=== PATIENT | female | born 1980 | race American Indian/Alaskan Native ===

== ENCOUNTER 2017-05-07 01:04 | Emergency (ER) | payer OTHER ==
[2017-05-07 02:30] VITALS: BP 119/57
[2017-05-07] MEDS ORDERED: MOTRIN PO ONE (02:31)
--- NOTE | 2017-05-07 04:33 | XRay Report ---
FINAL REPORT EXAM: XR SPINE CERVICAL 2-3V HISTORY: Neck pain. TECHNIQUE: Frontal, lateral, and odontoid radiographs of the cervical spine were obtained. No prior studies are available for comparison. FINDINGS: The vertebra are visualized to the top of T2 on the lateral radiograph. The cervical vertebral bodies demonstrate normal height and morphology. There is mild straightening of the normal cervical lordosis. This is nonspecific, but most commonly due to patient positioning and/or muscle spasm. There is no fracture or spondylolisthesis. The prevertebral soft tissues are normal in appearance. There is minimal loss of disc height at C4-5 and C5-6, with minimal anterior marginal spurring at these levels. Metallic artifact is seen in the oral cavity. IMPRESSION: 1. Nonspecific mild straightening, with no fracture or spondylolisthesis. 2. Minimal spondylotic and degenerative changes at C4-5 and C5-6.
--- NOTE | 2017-05-07 04:34 | XRay Report ---
FINAL REPORT EXAM: XR SPINE LUMBOSACRAL 2-3V HISTORY: Lower back pain TECHNIQUE: A frontal and two lateral radiographs of the lumbar spine were obtained. No prior studies are available for comparison. FINDINGS: The lumbar vertebral bodies demonstrate normal height and morphology. There is no fracture or spondylolisthesis. The intervertebral disc heights are maintained. No osseous abnormality is identified. There is moderate residual stool in the colon. IMPRESSION: No fracture, malalignment, or other osseous abnormality.
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
== END 2017-05-07 05:12 | disposition home or self-care (01) ==
LOC: ED 01:04
DX: M54.5 Low back pain (principal); M54.2 Cervicalgia; Z91.011 Allergy to milk products
CPT/HCPCS: 72040; 72100; 99283